=== PATIENT | male | born 1955 | race African-American/Black ===

== ENCOUNTER 2020-05-29 11:25 | Emergency (ER) | payer MEDICARE, MEDICAID, SELFPAY ==
--- NOTE | ~2020-05-29 | XR_ITS ---
EXAMINATION: XR chest 1V portable INDICATION: Shortness of breath, COVID 19 positive TECHNIQUE: Portable AP chest at 1221 hours COMPARISON: None available FINDINGS: The lungs are free of acute opacities. There is no pleural effusion or pneumothorax. The he art size is normal. There is questionable right hilar lymphadenopathy. IMPRESSION: 1. Questionable right hilar lymphadenopathy. Finding could be reactive given history of COVID 19. Reviewed, dictated and finalized at location A. TRICAL AND INSTRUMENTATION MANAGER IMPRESSION: 1. Questionable right hilar lymphadenopathy. Finding could be reactive given hi story of COVID 19.
[2020-05-29 11:38] VITALS: BP 121/76; PULSE 85; RESP 18; TEMP 37.6; O2SAT 97
--- NOTE | 2020-05-29 11:41 | ECG_ITS ---
Measurements Intervals [place] Rate: 86 P: 66 CA: 160 QRS: -18 QRSD: 101 T: 54 QT: 352 QTc: 423 Interpretive Statements SINUS RHYTHM NORMAL ECG Electronically Signed On 05-29-2020 15:22:52 CEMENT FINISHER APPRENTICE by Julio Smith D.O.
[2020-05-29 11:42] VITALS: O2SAT 99
--- NOTE | 2020-05-29 11:57 | ED.URI ---
HPI - URI/Sore Throat General Chief Complaint: Upper Respiratory Infection Stated Complaint: Covid Positive, Chest pain Time Seen by Provider: 05/29/20 11:40 Source: patient Mode of arrival: ambulatory Limitations: no limitations History of Present Illness HPI Narrative: 64-year-old male comes into the emergency department today with complaints of being Covid positive. Patient states he has been feeling rundown and not feeling well. Patient denies any shortness of breath. He states he just went to a local urgent care and had a positive rapid test. Ultimately he states he came in to get checked out because his sister just from Covid. Related Data Allergies Allergy/AdvReac Type Severity Reaction Status Date / Time No Known Allergies Allergy Verified 05/29/20 11:41 Review of Systems Review of Systems: Narrative: CONSTITUTIONAL: Denies fever, chills, or sweats. EYES: Denies visual changes, redness, or discharge. ENT: Denies rhinorrhea, congestion, sore throat, or otalgia. CARDIOVASCULAR: Denies chest pain, palpitations, or edema. RESPIRATORY: Denies cough or dyspnea. GASTROINTESTINAL: Denies abdominal pain, nausea, vomiting, or diarrhea. GENITOURINARY: Denies dysuria or hematuria. SKIN: Denies rash or itching. MUSCULOSKELETAL: Denies back pain, joint pain, or myalgia. Endorses malaise and fatigue NEUROLOGIC: Denies headache, numbness, dizziness, or weakness. PSYCHIATRIC: Denies anxiety or depression. Exam Narrative: Exam Narrative: GENERAL: Well-appearing, well-nourished, and in no acute distress. HEAD: Normocephalic, atraumatic. EYES: PERRLA and EOMI. ENT: Nares clear, no rhinorrhea or epistaxis. Mucous membranes moist. Oropharynx without tonsillar hypertrophy exudate or other lesions. Bilateral TMs pearly moraes nonbulging NECK: Supple. No adenopathy or masses. No carotid bruits or JVD CHEST: Clear to auscultation. No respiratory distress. No wheezes rales or rhonchi HEART: Regular rate and rhythm. No murmur heard. Normal peripheral pulses. ABDOMEN: Soft, nontender, nondistended, normal active bowel sounds. EXTREMITIES: Normal range of motion. No edema. SKIN: Warm, dry, no rash. NEURO: No focal deficits. Alert and oriented x3. PSYCH: Normal mood and affect. Course Vital Signs Vital signs: Vital Signs Temperature 37.6 C H 05/29/20 11:38 Pulse Rate 85 05/29/20 11:38 Respiratory Rate 18 05/29/20 11:38 Blood Pressure 121/76 05/29/20 11:38 Pulse Oximetry 97 05/29/20 11:38 Temperature 37.6 C H 05/29/20 11:38 Pulse Rate 74 05/29/20 12:08 Respiratory Rate 20 05/29/20 12:08 Blood Pressure 119/78 05/29/20 12:08 Pulse Oximetry 100 05/29/20 12:08 MDM - URI/Sore Throat MDM Narrative Medical decision making narrative: In brief this 64-year-old male came into the emergency department today with complaints of being Covid positive. After interviewing the patient he was, first sleeping when I entered the room, it was noted then that his vital signs were all within normal limits. Patient's oxygen saturations were 100%. After we spoke the patient's oxygen saturations did dip a little bit only to 96%. While he had been here and was observed on the manager service desk his heart rate and further vital signs remained within normal limits. Patient had a chest x-ray that appeared clear. I feel he may go home for expectant management of his Covid. Patient was encouraged to return should his symptoms worsen. Differential Diagnosis Differential diagnosis: Likely upper respiratory infection, croup, sinusitis, viral infection, bronchitis, influenza and pharyngitis Imaging Data Radiologist's impression: ITS Impressions Chest X-Ray 05/29/20 12:30 IMPRESSION: 1. Questionable right hilar lymphadenopathy. Finding could be reactive given history of COVID 19. Discharge Plan Discharge Clinical Impression: COVID-19 Patient Disposition: Home, Self-Care Condition: Improved
[2020-05-29] MEDS: IBUPROFEN 400 MG TABLET 800 MG PO (12:06)
[2020-05-29 12:08] VITALS: BP 119/78; PULSE 74; RESP 20; O2SAT 100
[2020-05-29 13:28] VITALS: BP 118/72; PULSE 70; RESP 18; O2SAT 99
== END 2020-05-29 13:29 | disposition home or self-care (01) ==
PROVIDERS: Emergency Provider Emergency Medicine
DX: U07.1 COVID-19 (principal); R91.8 Other nonspecific abnormal finding of lung field
CPT/HCPCS: 71045; 93005; 99283; A9270

== ENCOUNTER 2023-03-07 13:06 | Emergency (ER) | payer MEDICARE, MEDICAID, SELFPAY ==
--- NOTE | ~2023-03-07 | XR_ITS ---
EXAMINATION: XR chest 2V DATE: 03/07/2023 16:30 INDICATION: Lightheadedness. TECHNIQUE: Frontal and lateral views of the chest were obtained. 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 No pleural effusion or pneumothorax. The heart size is normal. IMPRESSION: 1. No acute cardiopulmonary disease. Reviewed, dictated and finalized at location A. SPEC
[2023-03-07 13:11] VITALS: BP 128/87; PULSE 46; RESP 16; TEMP 36.4; O2SAT 100
--- NOTE | 2023-03-07 13:19 | ECG_ITS ---
Measurements Intervals [place] Rate: 43 P: 57 ME: 184 QRS: -9 QRSD: 89 T: 78 QT: 437 QTc: 370 Interpretive Statements SINUS BRADYCARDIA NONSPECIFIC T-WAVE ABNORMALITY- ANT/INF LEADS BASELINE ARTIFACT- I, III, AVR, AVL, AVF ABNORMAL ECG COMPARED TO ECG 05/29/2020 11:33:20 SINUS BRADYCARDIA NOW PRESENT T-WAVE ABNORMALITY NOW PRESENT Electronically Signed On 03-07-2023 14:30:01 [place] by Julio Smith D.O.
--- NOTE | 2023-03-07 16:20 | ED.RECABL ---
HPI - Recheck/Abnormal Lab/Rx General Chief Complaint: Weakness Stated Complaint: low HR (sent from eye doc) Time Seen by Provider: 03/07/23 15:35 Source: patient Mode of arrival: ambulatory Limitations: no limitations History of Present Illness HPI narrative: This is a 67-year-old male that presents to the emergency department for low heart rate. Reports he was scheduled to have his cataracts surgery. They noted his heart rate was low and sent him in for evaluation. He is unsure if he has history of this. He reports he has felt mildly lightheaded today. Otherwise has no localizing symptoms. Denies chest pain or shortness of breath. Related Data Allergies Allergy/AdvReac Type Severity Reaction Status Date / Time No Known Allergies Allergy Verified 03/07/23 13:14 Review of Systems Review of Systems: CONSTITUTIONAL: Denies fever EYES: Denies visual changes CARDIOVASCULAR: Denies chest pain, or edema. RESPIRATORY: Denies dyspnea. NEUROLOGIC: Denies headache, numbness, or weakness. All systems reviewed & are unremarkable except as noted in HPI and below PMFSH Past Medical History Medical History (Updated 03/07/23 @ 19:48 by Matilda Orlando PA-C) History of hypertension Social History Social History (Updated 03/07/23 @ 16:21 by Matilda Orlando PA-C) Substance use: never Exam Narrative: GENERAL: Well-appearing, well-nourished, and in no acute distress. HEAD: Normocephalic, atraumatic. EYES: PERRLA and EOMI. ENT: Nares clear, no rhinorrhea or epistaxis. Mucous membranes moist. Oropharynx without tonsillar hypertrophy exudate or other lesions. Bilateral TMs pearly moraes non-bulging NECK: Supple. No adenopathy or masses. No JVD CHEST: Clear to auscultation. No respiratory distress. No wheezes rales or rhonchi HEART: Regular rate and rhythm. No murmur heard. Normal peripheral pulses. EXTREMITIES: Normal range of motion. No edema. SKIN: Warm, dry, no rash. NEURO: No focal deficits. Alert and oriented x3. CN II-XII grossly intact. Normal gait PSYCH: Normal mood and affect Course Course Emergency Course: Patient and family updated on workup and agree with plan of care Vital Signs Vital signs: Vital Signs Temperature 97.6 F 03/07/23 13:11 Pulse Rate 46 L 03/07/23 13:11 Respiratory Rate 16 03/07/23 13:11 Blood Pressure 128/87 03/07/23 13:11 Pulse Oximetry 100 03/07/23 13:11 Oxygen Delivery Room Air 03/07/23 13:11 Temperature 97.6 F 03/07/23 13:11 Pulse Rate 54 L 03/07/23 18:34 Respiratory Rate 16 03/07/23 13:11 Blood Pressure 126/88 03/07/23 18:34 Pulse Oximetry 100 03/07/23 13:11 Oxygen Delivery Room Air 03/07/23 13:11 MDM - Recheck/Abnormal Lab/Rx MDM Narrative Medical decision making narrative: Patient presents to the ER for evaluation of bradycardia. Reports he was noted at his eye doctor appointment for his cataract surgery that his heart rate was low and they sent him in for evaluation. He reported feeling a little lightheaded today, otherwise had no focal complaints. EKG shows sinus bradycardia. Rate in the 40s to 50s. CBC shows normocytic anemia with hemoglobin 15.2. Metabolic panel without concerning findings. Urine without evidence of infection. Chest x-ray without acute cardiopulmonary abnormality. EKG without concerning changes. Patient hydrated with IV fluids with relief. He was updated on workup. Agrees with plan of care. Instructed to follow up with his PCP. He was given warnings to return to the ER Differential Diagnosis Differential diagnosis: Likely other (orthostatic hypotension, sinus bradycardia, heart block) Lab Data Attestation: I reviewed the patient's lab results. 03/07/23 16:40 03/07/23 16:40 Labs: Lab Results 03/07/23 03/07/23 03/07/23 Range/Units 16:39 16:40 17:41 WBC 6.1 (4.5-10.0) K/mm3 RBC 4.80 (4.6-6.20) M/mm3 Hgb 13.2 L (14.0-18.0) g/dL Hct 41.8 L (42.0-52.0)
[2023-03-07 16:46] LABS: Basophils Percent Auto 0.5 % (0.2-1.2); Eosinophils Absolute Auto 0.1 K/mm3 (0-0.3); Eosinophils Percent Auto 1.2 % (0-4.4); Hematocrit 41.8 % (42.0-52.0); Hemoglobin 13.2 g/dL (14.0-18.0); Immature Granulocyte Absolute 0.02 K/mm3 (0.00-0.031); Immature Granulocyte Percent A 0.3 % (0-0.5); Lymphocytes Absolute Auto 2.38 K/mm3 (0.9-3.2); Lymphocytes Percent Auto 39.3 % (18.3-44.2); Mean Corpuscular HGB Conc 31.6 g/dl (32-36); Mean Corpuscular Hemoglobin 27.5 pg (26-34); Mean Corpuscular Volume 87.1 fl (80-100); Mean Platelet Volume 10.6 fl (7.4-10.4); Monocytes Absolute Auto 0.5 K/mm3 (0.1-0.6); Monocytes Percent Auto 8.3 % (2.6-8.5); Neutrophils Absolute Auto 3.1 K/mm3 (1.3-6.7); Neutrophils Percent Auto 50.4 % (45.5-73.1); Platelet Count Result 238 k/mm3 (150-375); Red Cell Distribution Width 14.3 % (11.5-14.5); White Blood Count 6.1 K/mm3 (4.5-10.0)
[2023-03-07 16:55] LABS: Alanine Aminotransferase 15 U/L (6-50); Albumin Level 4.3 g/dL (3.5-5.1); Alkaline Phosphatase 123 U/L (38-126); Anion Gap 8 mmol/L (8-16); Aspartate Amino Transferase 24 U/L (17-59); Bilirubin,Total 0.8 mg/dL (0.2-1.3); Blood Urea Nitrogen 14 mg/dL (9-20); Calcium 9.4 mg/dL (8.4-10.2); Carbon Dioxide 25 mmol/L (22-30); Chloride 105 mmol/L (98-107); Estimated CRCL calculation 74 ml/min; Estimated Glomerular Filt Rate > 60; Glucose 88 mg/dL (65-110); Potassium 3.8 mmol/L (3.4-5.0); Sodium 138 mmol/L (137-145)
[2023-03-07] MEDS: SODIUM CHLORIDE 0.9% IV 500 ML 999 ML IV CONT (17:40)
[2023-03-07 17:47] LABS: Appearance Urine Clear (Clear); Bilirubin Urine Negative (Negative); Blood Urine Negative (Negative); Color Urine Yellow (Yellow); Glucose Urine UA Negative (Negative); Ketones Urine Negative (Negative); Leukocyte Esterase Ur Negative LEU/UL (Negative); Nitrate Urine Negative (Negative); Protein Urine Negative (Negative); Specific Grav Ur 1.021 (1.001-1.035)
[2023-03-07 17:51] LABS: Add Urine Microscopic? NO
[2023-03-07 18:25] VITALS: BP 143/83; PULSE 55
[2023-03-07 18:30] VITALS: BP 130/91; PULSE 50
[2023-03-07 18:34] VITALS: BP 126/88; PULSE 54
[2023-03-07] MEDS: SODIUM CHLORIDE 0.9% IV 1,000 ML 999 ML IV CONT (18:41)
[2023-03-07 18:49] LABS: Magnesium 2.1 mg/dL (1.6-2.3)
[2023-03-07 19:55] VITALS: BP 144/87; PULSE 51; RESP 21; TEMP 36.8; O2SAT 100
[2023-03-07 20:05] LABS: Thyroid Stimulating Hormone Reflex 0.496 uIU/mL (0.465-4.68)
== END 2023-03-07 19:56 | disposition home or self-care (01) ==
PROVIDERS: Emergency Provider Physician Assistant
DX: R42 Dizziness and giddiness (principal); R00.1 Bradycardia, unspecified; D64.9 Anemia, unspecified; R94.31 Abnormal electrocardiogram [ECG] [EKG]
CPT/HCPCS: 36415; 71046; 80053; 81003; 83735; 84443; 85025; 93005; 96360; 96361; 99284; J7030; J7040